=== PATIENT | female | born 1975 | race Caucasian/White ===

== ENCOUNTER 2020-08-13 17:49 | Emergency (ER) | payer OTHER, SELFPAY ==
[2020-08-13] MEDS ORDERED: Dexamethasone 10 MG/ML VIAL ONE (19:27)
[2020-08-13] MEDS ORDERED: HYDROcodone/Acetaminophen 5/325 mg Tablet ONE (19:27)
[2020-08-13] MEDS ORDERED: Ondansetron ODT 4 MG TAB ONE (19:27)
== END 2020-08-13 20:24 | disposition home or self-care (01) ==
LOC: CSHERS 17:49
DX: J06.9 Acute upper respiratory infection, unspecified (principal); F17.210 Nicotine dependence, cigarettes, uncomplicated
CPT/HCPCS: 71046; 94640; J1100; J7620; Q0162